=== PATIENT | female | born 1965 | race Caucasian/White ===

== ENCOUNTER 2018-08-11 15:52 | Inpatient (IN) | payer MEDICARE ==
[~2018-08-11] VITALS: Ht 154.9 cm; Wt 78.3 kg
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
--- NOTE | ~2018-08-11 | MORECARE ---
CASE MANAGEMENT DISCHARGE SUMMARY PATIENT: VERONICA NDIAYE UNIT: [id number] ADM DATE: 08/11/18 AGE: 53 : 63 SEX: F ROOM/[facility]ED: [facility] AUTHOR: JACKSON LEARY PHYSICIAN: REFERRING PHYSICIAN: SUKH FREEMAN MD DATE OF SERVICE: 08/13/18 Discharge Plan Patient Name: VERONICA NDIAYE [facility] [facility] 1965 Planned Disposition: Home Anticipated Discharge Date: Discharge Date: 08/13/2018 Expected LOS: Initial Reviewer: [email or web address] Initial Review Date: 08/13/2018 Generated: 08/13/18 9:19 pm Patient Name: VERONICA NDIAYE Page 89528 at 2019 All edits/amendments must be made on the electronic document DICTATION DATE: 08/13/182018 BUSINESS EXCELLENCE LEADER: MARQUIS 08/13/182018 RPT#: [id number] DC DATE:08/13/18 STATUS: DIS IN [facility] [address] [place] [address] END OF REPORT
--- NOTE | ~2018-08-11 | MORECARE ---
CASE MANAGEMENT DISCHARGE SUMMARY PATIENT: VERONICA NDIAYE UNIT: [id number] ADM DATE: 08/11/18 AGE: 53 : 63 SEX: F ROOM[facility]BED: [facility] AUTHOR: JACKSON LEARY PHYSICIAN: REFERRING PHYSICIAN: SUKH FREEMAN MD DATE OF SERVICE: 08/13/18 Discharge Plan Patient Name: VERONICA NDIAYE [facility] [facility] 1965 Planned Disposition: Home Anticipated Discharge Date: Discharge Date: 08/13/2018 Expected LOS: Initial Reviewer: [email or web address] Initial Review Date: 08/13/2018 Generated: 08/13/18 9:25 pm DCPIA - Discharge Planning Initial Assessment Updated by [email or web address]: Marcelle Sánchez on 08/13/18 8:22 pm * Is the patient Alert and Oriented? Yes * How many steps to enter\exit or inside your home? * PCP DR. HICKMAN OFFICE? * [facility] * Preadmission Environment Home with Family * ADLs Independent * Equipment None * List name and contact numbers for known caregivers / representatives who currently or will assist patient after discharge: SUZIE NDIAYE [phone] * Verbal permission to speak to the caregivers and representatives has been obtained from the patient. Yes * Community resources currently utilized None * Additional services required to return to the preadmission environment? No * Can the patient safely return to the preadmission environment? Yes * Has this patient been hospitalized within the prior 30 days at any hospital? Yes Last DP export: 08/13/18 7:19 Patient Name: VERONICA NDIAYE Page 79990 at 202 All edits/amendments must be made on the electronic document DICTATION DATE: 08/13/182024 POWDER MIXER: [email or web address] 08/13/182024 RPT#: [id number] DC DATE:08/13/18 STATUS: DIS IN [facility] [address] [place] [address] END OF REPORT
[2018-08-11] MEDS ORDERED: CLEOCIN HCL300 MG PO (16:11)
[2018-08-11] MEDS ORDERED: BUPROPION XL150 MG PO (16:11)
[2018-08-11] MEDS ORDERED: KADIAN20 MG PO (16:11)
[2018-08-11] MEDS ORDERED: BUTALB-APAP-CA1 EACH PO (16:12)
[2018-08-11] MEDS ORDERED: LYRICA225 MG PO (16:12)
[2018-08-11 16:59] LABS: BASOPHILS 0.1 % (0-2); EOSINOPHILS 0 % (0-7); HEMATOCRIT 39.6 % (36.0-48.0); HEMOGLOBIN 14.1 g/dL (12-16); IMMATURE GRANULOCYTES 0.2 % (0-5); LYMPHOCYTES 12.7 % (15-50); MCH 30.9 pg (26.0-34.0); MCHC 35.6 g/dL (31.0-37.0); MCV 86.7 fL (80.0-100.0); MEAN PLATELET VOLUME 10.4 fL (7.4-10.4); MONOCYTES 4.8 % (2-11); NEUTROPHILS 82.2 % (40-80); PLATELET COUNT 331 10x3/uL (130-400); RBC 4.57 10x6/uL (4.00-5.40); RDW 12.8 % (11.5-14.5); WBC 11.3 10x3/uL (4.8-10.8)
[2018-08-11 17:25] LABS: ALBUMIN 3.7 g/dL (3.4-5.0); ALKALINE PHOSPHATASE 101 U/L (46-116); ALT (SGPT) 25 U/L (10-68); AMYLASE - SERUM 32 U/L (25-115); BILIRUBIN - TOTAL 0.33 mg/dL (0.2-1.3); CALC OSMOLALITY 282 mosm/kg (275-300); CALCIUM 9.5 mg/dL (8.5-10.1); CARBON DIOXIDE 24.6 mmol/L (21.0-32.0); CHLORIDE - SERUM 101 mmol/L (98-107); CREATININE - SERUM 0.6 mg/dL (0.6-1.3); GLUCOSE 235 mg/dL (74-106); LIPASE 124 U/L (73-393); POTASSIUM - SERUM 3.1 mmol/L (3.5-5.1); PROTEIN - SERUM 7.6 g/dL (6.4-8.2); SODIUM 138 mmol/L (136-145); UREA NITROGEN 9 mg/dL (7-18); eGFR NON AFRICAN AMERICAN > 90 mL/min (90-120)
[2018-08-11 17:26] LABS: TROPONIN-I < 0.017 ng/mL (0.000-0.060)
[2018-08-11 18:02] LABS: APPEARANCE CLEAR (CLEAR); BILIRUBIN NEGATIVE (NEGATIVE); COLOR YELLOW (YELLOW); GLUCOSE 500 mg/dL (NEGATIVE); KETONE LARGE mg/dL (NEGATIVE); NITRITE NEGATIVE (NEGATIVE); PROTEIN 1+ mg/dL (NEGATIVE); UROBILINOGEN NORMAL (NORMAL)
[2018-08-11 18:04] LABS: BACTERIA FEW /hpf (NONE SEEN); EPITHELIAL CELLS 0-5 /hpf (0-5); RED CELLS - URINE OCC /hpf (0-5); WHITE CELLS - URINE OCC /hpf (0-5)
[2018-08-11 18:29] LABS: UDS - AMPHET NEGATIVE QUAL (NEGATIVE); UDS - BARB POSITIVE QUAL (NEGATIVE); UDS - BENZO NEGATIVE QUAL (NEGATIVE); UDS - COCAINE NEGATIVE QUAL (NEGATIVE); UDS - OPIATE POSITIVE QUAL (NEGATIVE); UDS - PCP NEGATIVE QUAL (NEGATIVE); UDS - THC NEGATIVE QUAL (NEGATIVE)
[2018-08-11 23:30] VITALS: BP 170/99
[2018-08-12 02:30] VITALS: BP 145/81
[2018-08-12 06:53] LABS: BASOPHILS 0.1 % (0-2); EOSINOPHILS 0.1 % (0-7); HEMATOCRIT 37.1 % (36.0-48.0); HEMOGLOBIN 13.2 g/dL (12-16); IMMATURE GRANULOCYTES 0.4 % (0-5); LYMPHOCYTES 14.4 % (15-50); MCH 30.6 pg (26.0-34.0); MCHC 35.6 g/dL (31.0-37.0); MCV 86.1 fL (80.0-100.0); MEAN PLATELET VOLUME 10.5 fL (7.4-10.4); MONOCYTES 6.3 % (2-11); NEUTROPHILS 78.7 % (40-80); PLATELET COUNT 295 10x3/uL (130-400); RBC 4.31 10x6/uL (4.00-5.40); WBC 10.8 10x3/uL (4.8-10.8)
[2018-08-12 07:21] LABS: ALBUMIN 3.5 g/dL (3.4-5.0); ALKALINE PHOSPHATASE 92 U/L (46-116); ALT (SGPT) 29 U/L (10-68); BILIRUBIN - TOTAL 0.29 mg/dL (0.2-1.3); CALC OSMOLALITY 285 mosm/kg (275-300); CARBON DIOXIDE 27.7 mmol/L (21.0-32.0); CHLORIDE - SERUM 102 mmol/L (98-107); CREATININE - SERUM 0.6 mg/dL (0.6-1.3); GLUCOSE 208 mg/dL (74-106); PROTEIN - SERUM 7.1 g/dL (6.4-8.2); SODIUM 141 mmol/L (136-145); UREA NITROGEN 9 mg/dL (7-18); eGFR NON AFRICAN AMERICAN > 90 mL/min (90-120)
[2018-08-12 07:25] LABS: POTASSIUM - SERUM 2.8 mmol/L (3.5-5.1)
[2018-08-12 08:00] VITALS: BP 181/80
[2018-08-12 10:46] LABS: PHOSPHOROUS 3.3 mg/dL (2.5-4.9)
[2018-08-12 13:07] VITALS: BP 143/61
[2018-08-12 13:40] VITALS: BMI 33.0
[2018-08-12 17:06] VITALS: BP 150/62
[2018-08-12 23:00] VITALS: BP 170/69
[2018-08-12 23:07] VITALS: BP 170/69; Ht 154.9 cm; Wt 78.3 kg
[2018-08-13] VITALS (10 sets, daily range): BP systolic 149–191; BP diastolic 53–75
[2018-08-13 06:39] LABS: BASOPHILS 0.3 % (0-2); EOSINOPHILS 0.9 % (0-7); HEMATOCRIT 39.2 % (36.0-48.0); HEMOGLOBIN 13.6 g/dL (12-16); IMMATURE GRANULOCYTES 0.2 % (0-5); MCH 30.6 pg (26.0-34.0); MCHC 34.7 g/dL (31.0-37.0); MEAN PLATELET VOLUME 9.9 fL (7.4-10.4); MONOCYTES 9.2 % (2-11); NEUTROPHILS 60.4 % (40-80); PLATELET COUNT 280 10x3/uL (130-400); RBC 4.44 10x6/uL (4.00-5.40); RDW 13.3 % (11.5-14.5); WBC 9.3 10x3/uL (4.8-10.8)
[2018-08-13 06:52] LABS: MCV 88.3 fL (80.0-100.0)
[2018-08-13 06:59] LABS: ALBUMIN 3.5 g/dL (3.4-5.0); ALKALINE PHOSPHATASE 93 U/L (46-116); BILIRUBIN - TOTAL 0.31 mg/dL (0.2-1.3); CALCIUM 9.1 mg/dL (8.5-10.1); CARBON DIOXIDE 28.1 mmol/L (21.0-32.0); CHLORIDE - SERUM 108 mmol/L (98-107); CREATININE - SERUM 0.7 mg/dL (0.6-1.3); PROTEIN - SERUM 7.3 g/dL (6.4-8.2); SODIUM 146 mmol/L (136-145); eGFR NON AFRICAN AMERICAN > 90 mL/min (90-120)
[2018-08-13 07:02] LABS: ALT (SGPT) 38 U/L (10-68); CALC OSMOLALITY 292 mosm/kg (275-300); GLUCOSE 132 mg/dL (74-106); POTASSIUM - SERUM 3.4 mmol/L (3.5-5.1); UREA NITROGEN 12 mg/dL (7-18)
[2018-08-13 10:53] LABS: BASOPHILS 0.3 % (0-2); EOSINOPHILS 0.8 % (0-7); HEMATOCRIT 38.6 % (36.0-48.0); HEMOGLOBIN 13.2 g/dL (12-16); IMMATURE GRANULOCYTES 0.2 % (0-5); LYMPHOCYTES 25.4 % (15-50); MCH 30.4 pg (26.0-34.0); MCHC 34.2 g/dL (31.0-37.0); MCV 88.9 fL (80.0-100.0); MEAN PLATELET VOLUME 10.4 fL (7.4-10.4); MONOCYTES 7.1 % (2-11); NEUTROPHILS 66.2 % (40-80); PLATELET COUNT 248 10x3/uL (130-400); RBC 4.34 10x6/uL (4.00-5.40); RDW 13.2 % (11.5-14.5); WBC 8.7 10x3/uL (4.8-10.8)
[2018-08-13] MEDS ORDERED: GLUCOPHAGE500 MG PO (15:41)
[2018-08-13] MEDS ORDERED: PEPCID40 MG PO (15:52)
== END 2018-08-13 18:01 | disposition home or self-care (01) | DRG 917 ==
LOC: D.ER 15:52 → D.EDHOLD 20:19 → D.CVICU 20:19
PROVIDERS: Emergency Medicine; Family Medicine
DX: T40.601A Poisoning by unspecified narcotics, accidental (unintentional), initial encounter (principal); G93.41 Metabolic encephalopathy; E83.42 Hypomagnesemia; G89.29 Other chronic pain; M79.7 Fibromyalgia; F32.9 Major depressive disorder, single episode, unspecified; R31.9 Hematuria, unspecified; E87.6 Hypokalemia; F17.200 Nicotine dependence, unspecified, uncomplicated; E11.65 Type 2 diabetes mellitus with hyperglycemia; R19.7 Diarrhea, unspecified; D72.829 Elevated white blood cell count, unspecified; M19.90 Unspecified osteoarthritis, unspecified site